=== PATIENT | female | born 1970 | race Caucasian/White ===

== ENCOUNTER 2018-07-24 09:06 | Outpatient (CLI) | payer OTHER ==
[2016-04-27 20:22] VITALS: BP 125/78
[2018-07-24 10:47] LABS: eGFR (Non-African) > 60
== END 2018-07-24 09:15 ==
LOC: LAB 09:06
PROVIDERS: ATTEND Nurse Practitioner Family
DX: Z00.00 Encounter for general adult medical examination without abnormal findings (principal); Z82.41 Family history of sudden cardiac death
CPT/HCPCS: 36415; 80053; 80061

== ENCOUNTER 2018-08-19 10:27 | Outpatient (CLI) | payer OTHER ==
[2016-04-27 20:22] VITALS: BP 125/78
[2018-08-19 11:13] LABS: eGFR (Non-African) > 60
== END 2018-08-19 10:30 ==
LOC: LAB 10:27
PROVIDERS: ATTEND Family Medicine
DX: I10 Essential (primary) hypertension (principal)
CPT/HCPCS: 36415; 80048